=== PATIENT | female | born 1980 | race Caucasian/White ===

== ENCOUNTER → 2023-12-16 | Outpatient (CLI) | payer OTHER ==
[2023-12-18 04:07] LABS: TESTOSTERONE FREE, (DIRECT) 0.8 pg/mL (0.0-4.2)
== END | disposition home or self-care (01) ==
LOC: LAB 00:06 → US 12:30
PROVIDERS: ATTEND Otolaryngology
DX: Z01.419 Encounter for gynecological examination (general) (routine) without abnormal findings (principal); E04.1 Nontoxic single thyroid nodule; R68.82 Decreased libido; R23.2 Flushing